=== PATIENT | female | born 1965 | race Caucasian/White ===

== ENCOUNTER → 2023-12-29 | Outpatient (CLI) | payer OTHER ==
[~2023-12-29] VITALS: Ht 167.6 cm; Wt 67.5 kg
[~2023-12-29] MED LIST: ATOR40TA28 PO; HUM10VIA SQ; LISI-892 PO; METF-81 PO; OMEP20 PO; TOPI100T37 PO; TOPI25 PO; [UNRECOGNIZED DRUG - CODE] PO
[2023-12-29 11:01] VITALS: BP 159/88; PULSE 86; RESP 16; TEMP 98.5; O2SAT 100
== END | disposition home or self-care (01) ==
LOC: SRCNTR 10:33
PROVIDERS: ATTEND Internal Medicine
DX: I10 Essential (primary) hypertension (principal); E78.5 Hyperlipidemia, unspecified; E11.9 Type 2 diabetes mellitus without complications; K21.9 Gastro-esophageal reflux disease without esophagitis; F32.A Depression, unspecified; M25.775 Osteophyte, left foot; Z79.899 Other long term (current) drug therapy; Z88.8 Allergy status to other drugs, medicaments and biological substances
CPT/HCPCS: G0463; Z7500

== ENCOUNTER → 2024-01-03 | Outpatient (CLI) | payer OTHER ==
[~2024-01-03] MED LIST changes: +AMIT-166 PO; -TOPI100T37 PO; -[UNRECOGNIZED DRUG - CODE] PO
[2024-01-03 07:39] LABS: BASOPHILS % (AUTO) 0.6 % (0.0-2.0); EOSINOPHILS % (AUTO) 2.1 % (1.0-6.0); HEMATOCRIT 38.6 % (36-46); HEMOGLOBIN 12.3 g/dL (12.0-16.0); LYMPHOCYTES # (AUTO) 1.6 K/uL (1.0-4.8); LYMPHOCYTES % (AUTO) 42.2 % (22.0-44.0); MEAN CORPUSCULAR HEMOGLOBIN 25.3 pg (26.0-34.0); MEAN CORPUSCULAR VOLUME 79 fL (80-100); MONOCYTES # (AUTO) 0.3 K/uL (0.1-1.0); MONOCYTES % (AUTO) 7.3 % (2.0-9.0); NEUTROPHILS # (AUTO) 1.8 K/uL (1.8-7.7); NEUTROPHILS % (AUTO) 47.8 % (40.0-70.0); PLATELET COUNT (AUTO) 176 K/uL (150-450); RED BLOOD CELL COUNT(AUTO) 4.87 MIL/uL (4.00-5.20); RED CELL DISTRIBUTION WIDTH 14.8 % (11.5-14.5); WHITE BLOOD COUNT (AUTO) 3.8 K/uL (4.5-11.0)
[2024-01-03 07:56] LABS: HEMOGLOBIN A1C 7.6 % (3.8-5.6)
[2024-01-03 08:00] LABS: ALANINE AMINOTRANSFERASE 19 U/L (12-78); ALBUMIN 3.9 g/dL (3.4-5.0); ALKALINE PHOSPHATASE 63 U/L (46-116); ANION GAP 9 mmol/L (8-16); ASPARTATE AMINOTRANSFERASE 14 U/L (15-37); BILIRUBIN,TOTAL 0.4 mg/dL (0.1-1.0); CALCIUM, TOTAL 9.3 mg/dL (8.8-10.5); CARBON DIOXIDE 26 mmol/L (22-29); CHLORIDE 107 mmol/L (98-107); CHOL/HDL RATIO 2.2 (3.9-5.7); CHOLESTEROL 163 mg/dL (131-200); CREATININE 0.69 mg/dL (0.60-1.30); GLOMERULAR FILTR. RATE CALC > 60 mL/min (>60); GLUCOSE,RANDOM 143 mg/dL (70-110); HDL CHOLESTEROL 75 mg/dL (40-60); LDL CHOL (CALC.) 76 mg/dL (0-130); POTASSIUM 4.1 mmol/L (3.5-5.1); SODIUM SERUM 142 mmol/L (136-145); TOTAL PROTEIN, SERUM 6.9 g/dL (6.4-8.2); TRIGLYCERIDES 60 mg/dL (15-150); UREA NITROGEN, BLOOD 17 mg/dL (7-18)
[2024-01-03 11:58] LABS: VITAMIN B12 LEVEL 290 pg/mL (211-911); VITAMIN D,TOTAL (25-0H) 35 ng/mL (30-100)
[2024-01-03 11:59] LABS: FOLATE SERUM > 24.0 ng/mL (5.4-)
== END | disposition home or self-care (01) ==
LOC: LABMN 07:03
PROVIDERS: ATTEND Internal Medicine
DX: I10 Essential (primary) hypertension (principal); E11.9 Type 2 diabetes mellitus without complications; E78.5 Hyperlipidemia, unspecified
CPT/HCPCS: 80053; 80061; 82306; 82607; 82746; 83036; 84443; 85025

== ENCOUNTER → 2024-01-26 | Outpatient (CLI) | payer OTHER ==
[~2024-01-26] VITALS: Ht 167.6 cm; Wt 68.0 kg
[~2024-01-26] MED LIST changes: -AMIT-166 PO; +TOPI100T37 PO; +[UNRECOGNIZED DRUG - CODE] PO
[2024-01-26 10:18] VITALS: BP 152/94; PULSE 88; RESP 18; TEMP 98.5; O2SAT 99
== END | disposition home or self-care (01) ==
LOC: SRCNTR 10:03
PROVIDERS: ATTEND Internal Medicine
DX: I10 Essential (primary) hypertension (principal); K21.9 Gastro-esophageal reflux disease without esophagitis; E78.5 Hyperlipidemia, unspecified; E11.42 Type 2 diabetes mellitus with diabetic polyneuropathy; L84 Corns and callosities; Z79.899 Other long term (current) drug therapy
CPT/HCPCS: G0463